=== PATIENT | male | born 2000 | race Caucasian/White ===

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

== ENCOUNTER → 2021-01-23 12:45 | Outpatient (BNVA) | payer MEDICAID, SELFPAY | PROVIDERS: Visit Provider Nurse Practitioner | DX: F33.1 Major depressive disorder, recurrent, moderate (principal); F10.21 Alcohol dependence, in remission; F15.21 Other stimulant dependence, in remission | CPT/HCPCS: 99214 ==

== ENCOUNTER 2021-02-17 10:06 | Emergency (ER) | payer MEDICAID, SELFPAY ==
[2021-02-17 10:24] VITALS: BP 132/74; PULSE 71; RESP 20; TEMP 36.4; O2SAT 98
--- NOTE | 2021-02-17 10:32 | W.ED.CHESTPA ---
HPI - Chest Pain General: Chief Complaint: Chest Pain Stated Complaint: Shortness of breath, chest pain Time Seen by Provider: 02/17/21 10:32 History of Present Illness: HPI narrative: Mr. Ochoa is a 20-year-old gentleman without significant past medical history presents to the emergency department due to abnormal feeling in his chest. Symptom onset was subacute yesterday. He does not recall specifically what he was doing at the time but it was not strenuous exertion. He describes intermittent pulsing sensations or a rash of chest pain in the left anterior chest. There is no significant radiation. He describes it as briefly taking his breath away however no associated other shortness of breath. He has not had frequent episodes of this in the past. The intensity when present is moderate. No other specific exacerbating, alleviating, or provoking factors. Review of Systems General: Reports: 10 or more systems reviewed and unremarkable except in HPI and below Narrative: CONSTITUTIONAL: denies fever, fatigue, weakness EYES - denies pain, denies loss of vision NOSE - denies congestion or rhinorrhea. THROAT - denies sore throat or difficulty swallowing. CARDIOVASCULAR -see HPI RESPIRATORY - denies shortness of breath and cough GASTROINTESTINAL - denies abdominal pain, no nausea vomiting, no changes in bowel habits GENITOURINARY - denies dysuria or urinary frequency MUSCULOSKELETAL- denies deformity or pain SKIN - denies rashes or new changed skin lesions NEUROLOGIC - denies focal weakness or sensory changes. No syncope. HEMATOLOGIC/LYMPHATIC - denies easy bruising or lymphadenopathy. [facility] ED PFSH: Medical History Alcohol dependence, in remission Major depressive disorder, recurrent, moderate Nicotine dependence, cigarettes, uncomplicated Other stimulant dependence, in remission Physical Exam Narrative: EXAM NARRATIVE: GENERAL/CONSTITUTIONAL - well-appearing. No acute distress. Patient is tall and thin, somewhat marfanoid body habitus. Eyes - PERRL, no conjunctival injection ENMT - Atraumatic external nose and ears. Moist mucous membranes NECK - supple. trachea midline CARDIOVASCULAR - regular rate and rhythm. Peripheral pulses 2+ and equal RESPIRATORY -clear to auscultation bilaterally. No retractions or accessory muscle use. ABDOMEN/GI - Nontender/Nondistended. No tenderness to percussion or evidence of peritonitis MSK - Extremities without obvious deformity or tenderness to palpation SKIN - Warm, Dry NEURO - alert and appropriately oriented. strength and sensation intact. Moves all extremities equally. PSYCH - Appropriate mood and affect Course ED course: - Patient was seen and evaluated by me at bedside - Patient placed on cardiac monitors, IV access obtained - Initial evaluation notable for no acute distress, nontoxic appearance - Labs notable for no acute abnormality to explain patient's symptoms - Imaging notable for no evidence of pneumothorax or other acute abnormality to explain patient's symptoms - Based on patient history, evaluation, labs, and imaging as interpreted the most likely cause of the patient's condition is unclear though overall patient is low risk for major adverse cardiac event. - The results of ED evaluation were discussed with the patient including prescriptions and/or symptomatic cares including appropriate and responsible use, followup plan, and return precautions. The patient verbalized understanding and felt safe for discharge. - Patient discharged in satisfactory condition. Vital Signs: Vital signs: Vital Signs Temperature 97.5 F L 02/17/21 13:57 Pulse Rate 74 02/17/21 13:57 Respiratory Rate 20 H 02/17/21 13:57 Blood Pressure 134/74 02/17/21 13:57 Pulse Oximetry 98 02/17/21 13:57 MDM - Chest Pain Medical Records: Attestation: I reviewed the patient's medical records. Lab Data: Attestation: I reviewed the patient's lab results. Labs: Lab Results 02/17/21 02/17/21 02/17/21 Range/Units 10:57 10:57 10:57 WBC 4.1 L (4.5-13.0) 10^3/ uL RBC 4.57 (4.1-5.3) 10^6/u L Hgb 14.0 (11.7-16.6) g/dL Hct 40.6 L (42.0-52.0) % MCV 88.8 (80-94) fl MCH 30.6 (28.0-34.0) pg MCHC 34.5 (30.0-36.0) g/dL RDW 11.3 L (12.1-15.1) % Plt Count 231 (130-400) 10^3/c mm MPV 9.5 (7.4-10.4) fL Neut % (Auto) 44.8 % Lymph % (Auto) 39.6 % [place] % (Auto) 9.8 % Eos % (Auto) 4.9 % Baso % (Auto) 0.7 % Neut # (Auto) 1.83 (1.8-8.0) 10^3/u L Lymph # (Auto) 1.6 (1.5-6.5) 10^3/u L [place] # (Auto) 0.4 (0.2-0.9) 10^3/u L Eos # (Auto) 0.2 (0.0-0.8) 10^3/u L Baso # (Auto) 0.0 (0.0-0.1) 10^3/u L Nucleated RBC % (a uto) 0 % Nucleated RBCs # 0.0 /100WBC D-Dimer (0-0.59) ug/mIFE U Sodium 140 (136-145) mmol/L Potassium 4.7 (3.5-5.1) mmol/L Chloride 105 (98-107) mmol/L Carbon Dioxide 28 (22-29) mmol/L Anion Gap 11.7 (5-19) BUN 10 (6-20) mg/dL Creatinine 0.5 L (0.7-1.2) mg/dL GFR Calculation 214.2 H (90-130) mL/min Glucose 76 (65-115) mg/dL Calculated Osmolal ity 288 (285-295) mOsm/k g Calcium 9.4 (8.5-10.5) mg/dL Total Bilirubin 0.6 (0.15-1.2) mg/dL AST 15 (0-40) U/L ALT 9 (0-41) U/L Alkaline Phosphata se 63 (40-130) IU/L Troponin T Baselin e 6 (0-15) ng/L NT-Pro-B Natriuret Pep 26 (0-125) pg/mL Total Protein 7.1 (6.6-8.7) g/dL Albumin 4.7 (3.5-5.2) g/dL Globulin 2.4 (1.3-4.6) g/dL Lipase 27 (13-60) U/L SARS-CoV-2 Ag (Rap id) (Negative) 02/17/21 02/17/21 Range/Units 11:19 11:33 WBC (4.5-13.0) 10^3/ uL RBC (4.1-5.3) 10^6/u L Hgb (11.7-16.6) g/dL Hct (42.0-52.0) % MCV (80-94) fl MCH (28.0-34.0) pg MCHC (30.0-36.0) g/dL RDW (12.1-15.1) % Plt Count (130-400) 10^3/c mm MPV (7.4-10.4) fL Neut % (Auto) % Lymph % (Auto) % [place] % (Auto) % Eos % (Auto) % Baso % (Auto) % Neut # (Auto) (1.8-8.0) 10^3/u L Lymph # (Auto) (1.5-6.5) 10^3/u L [place] # (Auto) (0.2-0.9) 10^3/u L Eos # (Auto) (0.0-0.8) 10^3/u L Baso # (Auto) (0.0-0.1) 10^3/u L Nucleated RBC % (a uto) % Nucleated RBCs # /100WBC D-Dimer <= 0.27 (0-0.59) ug/mIFE U Sodium (136-145) mmol/L Potassium (3.5-5.1) mmol/L Chloride (98-107) mmol/L Carbon Dioxide (22-29) mmol/L Anion Gap (5-19) BUN (6-20) mg/dL Creatinine (0.7-1.2) mg/dL GFR Calculation (90-130) mL/min Glucose (65-115) mg/dL Calculated Osmolal ity (285-295) mOsm/k g Calcium (8.5-10.5) mg/dL Total Bilirubin (0.15-1.2) mg/dL AST (0-40) U/L ALT (0-41) U/L Alkaline Phosphata se (40-130) IU/L Troponin T Baselin e (0-15) ng/L NT-Pro-B Natriuret Pep (0-125) pg/mL Total Protein (6.6-8.7) g/dL Albumin (3.5-5.2) g/dL Globulin (1.3-4.6) g/dL Lipase (13-60) U/L SARS-CoV-2 Ag (Rap id) Negative (Negative) EKG Data^: EKG 1: Attestation: I personally reviewed and interpreted this EKG as follows: EKG interpretation date: 06/19/21 EKG interpretation time: 10:25 Prior EKG tracings: available for review Interpretation: Twelve-lead EKG shows a regular sinus rhythm at a rate of 77. AK interval 143, QRS duration 97, QTc 368. Normal axis. Interpretation: Sinus rhythm Discharge Plan Discharge Patient Disposition: Home Clinical Impression: Chest pain Condition: Stable Prescriptions: No Action melatonin 5 mg Tablet 5 mg PO BEDTIME RF: 0 Seroquel 50 mg tablet 50 mg PO BEDTIME RF: 0 Discharge Orders: Discharge ED (Routine); Ordered 02/17/21 Ordered By: Adalberto Chanel Discharge Diet: Usual diet Discharge Activity: Resume usual activity Patient Instructions: Chest Pain (ED), Dyspnea (ED) Activity Restrictions/Additional Instructions: Thank you for visiting the emergency department. You were seen and evaluated for chest pain. The exact cause of your symptoms is unclear but does not appear to need hospitalization at this time. Please follow-up with a primary care provider. Please establish with a primary care provider if you do not currently have one. Please return to the emergency department for any reason that you are concerned about and feel needs emergency department evaluation. Coding Level of Care Code ED Sprinkler Fitter Apprentice for Pat Lopez
--- NOTE | 2021-02-17 10:46 | ECG_ITS ---
[facility] Test Date: 2021-02-17 Pat Name: Vinayak Ochoa Department: Room: Gender: Male Hand Stripper: : 2000 Requested By: Adalberto Chanel Order Number: [id number] Angus MD: Artem Joe M.D. Measurements Intervals [place] Rate: 77 P: 77 NV: 143 QRS: 95 QRSD: 97 T: 78 QT: 324 QTc: 368 Interpretive Statements SINUS RHYTHM POSSIBLE RIGHT ATRIAL ENLARGEMENT [0.25mV P WAVE] BORDERLINE RIGHT AXIS DEVIATION [QRS AXIS > 90] POSSIBLE RIGHT VENTRICULAR CONDUCTION DELAY [RSR (QR) IN V1/V2] Compared to ECG 03/20/2020 12:51:35 Sinus bradycardia no longer present Electronically Signed On 02-17-2021 19:31:27 CDT by Artem Joe M.D. [email or web address]
--- NOTE | 2021-02-17 10:46 | XR_ITS ---
WS: [id number] Portable AP upright chest, 02/17/2021 Clinical Data: chest pain Comparison: Portable chest, 03/20/2020. Findings: No nodules, masses or effusions are seen. The heart is normal. The pulmonary vascularity is not increased. No pneumonia or pneumothorax is seen. XR/XR chest 1V portable [id number] Impression: Negative chest.
[2021-02-17] MEDS: acetaminophen 325 mg Tablet 650 MG PO (10:56)
[2021-02-17 11:04] LABS: Basophils % 0.7 %; Eosinophils # 0.2 10^3/uL (0.0-0.8); Eosinophils % 4.9 %; Hematocrit 40.6 % (42.0-52.0); Lymphocytes # 1.6 10^3/uL (1.5-6.5); Lymphocytes % 39.6 %; Mean Corpuscular HGB Conc 34.5 g/dL (30.0-36.0); Mean Corpuscular Hemoglobin 30.6 pg (28.0-34.0); Mean Corpuscular Volume 88.8 fl (80-94); Mean Platelet Volume 9.5 fL (7.4-10.4); Monocytes # 0.4 10^3/uL (0.2-0.9); Monocytes % 9.8 %; Neutrophils # 1.83 10^3/uL (1.8-8.0); Neutrophils % 44.8 %; Nucleated Red Blood Cells % 0 %; Platelet Count 231 10^3/cmm (130-400); Red Blood Count 4.57 10^6/uL (4.1-5.3); Red Cell Distribution Width 11.3 % (12.1-15.1); White Blood Count 4.1 10^3/uL (4.5-13.0)
[2021-02-17 11:28] LABS: Troponin(5th) Baseline 6 ng/L (0-15)
[2021-02-17 11:36] LABS: Alanine Aminotransferase 9 U/L (0-41); Albumin Level 4.7 g/dL (3.5-5.2); Alkaline Phosphatase 63 IU/L (40-130); Aspartate Amino Transferase 15 U/L (0-40); Blood Urea Nitrogen 10 mg/dL (6-20); Calcium 9.4 mg/dL (8.5-10.5); Carbon Dioxide 28 mmol/L (22-29); Chloride 105 mmol/L (98-107); Globulin 2.4 g/dL (1.3-4.6); Glomerular Filtration Rate 214.2 mL/min (90-130); Glucose 76 mg/dL (65-115); Lipase 27 U/L (13-60); NT Pro B Type Natriuretic Pept 26 pg/mL (0-125); Osmolality Calculated 288 mOsm/kg (285-295); Sodium 140 mmol/L (136-145); Total Bilirubin 0.6 mg/dL (0.15-1.2); Total Protein 7.1 g/dL (6.6-8.7)
[2021-02-17 11:42] LABS: Anion Gap 11.7 (5-19); Potassium 4.7 mmol/L (3.5-5.1)
[2021-02-17 11:46] LABS: SARS Covid-2 Antigen Negative (Negative)
[2021-02-17 11:51] LABS: D Dimer <= 0.27 ug/mIFEU (0-0.59)
[2021-02-17 13:57] VITALS: BP 134/74; PULSE 74; RESP 20; TEMP 36.4; O2SAT 98
== END 2021-02-17 13:58 | disposition home or self-care (01) ==
PROVIDERS: Emergency Provider Emergency Medicine
DX: R07.9 Chest pain, unspecified (principal)
CPT/HCPCS: 71045; 80053; 83690; 83880; 84484; 85025; 85378; 87426; 93005; 99283

== ENCOUNTER → 2021-04-10 14:36 | Outpatient (BNVA) | payer MEDICAID, SELFPAY | PROVIDERS: Visit Provider Nurse Practitioner | DX: F33.1 Major depressive disorder, recurrent, moderate (principal); F10.21 Alcohol dependence, in remission; F15.21 Other stimulant dependence, in remission; F17.210 Nicotine dependence, cigarettes, uncomplicated | CPT/HCPCS: 99214 ==

== ENCOUNTER 2024-09-10 16:53 | Emergency (ER) | payer SELFPAY ==
[2024-09-10 16:56] VITALS: BP 109/69; PULSE 70; RESP 17; TEMP 36.5; O2SAT 96; BMI 15.3
--- NOTE | 2024-09-10 17:05 | W.ED.EXTPRO ---
HPI - Extremity Problem General: Chief complaint: Extremity Injury, Lower Stated complaint: right leg weakness Time Seen by Provider: 09/10/24 17:05 History of Present Illness: 24-year-old male patient comes in today for complaints of difficulty walking. Patient states that he has been told that he has arthritis in his hip and knees. Patient today was walking back from a job interview [place]. Patient reports occasionally has difficulty with falling. Related Data Home Medications ?Medication ?Instructions ?Recorded ?Confirmed No Known Home Medications 12/18/22 12/18/22 Allergies Allergy/AdvReac Type Severity Reaction Status Date / Time No Known Allergies Allergy Verified 12/18/22 17:17 Review of Systems General: Reports: 10 or more systems reviewed and unremarkable except in HPI and below PFSH ED PFSH: Medical History (Updated 09/10/24 @ 17:17 by MILLA Milan) Alcohol dependence, in remission Other stimulant dependence, in remission Major depressive disorder, recurrent, moderate Nicotine dependence, cigarettes, uncomplicated Physical Exam Const: COMMON NORMALS: alert HENMT: COMMON NORMALS: normocephalic HEAD & SCALP: normocephalic Neck/C-Spine: COMMON NORMALS: full ROM Resp: COMMON NORMALS: normal respiratory effort Back/Pelvis: COMMON NORMALS: thoracic and lumbar spine normal to inspection Extremity: COMMON NORMALS: normal to inspection Neuro: SENSORIUM/ORIENTATION: Yes alert Skin: COMMON NORMALS: turgor normal GENERAL SKIN EXAM: turgor normal Course Vital Signs: Vital signs: Vital Signs Temperature 97.7 F 09/10/24 16:56 Pulse Rate 70 09/10/24 16:56 Respiratory Rate 17 09/10/24 16:56 Blood Pressure 109/69 09/10/24 16:56 Pulse Oximetry 96 09/10/24 16:56 Oxygen Delivery Me thod Room Air 09/10/24 16:56 MDM - Extremity (Nontraumatic) Medical Decision Making 24-year-old male patient comes in today with difficulty walking. Patient states he has been told that he has arthritis. When questioned about his arthritis patient said it was due to poor nutrition growing up. Patient appears nontoxic. Patient appears no acute distress. Palpation of extremities note no elicitation of pain or discomfort no obvious deformity. Differential diagnosis includes malingering, osteoarthritis, nutritional deficiency, major depressive disorder. Patient does admit to poor eating due to no money to buy food. Patient often walks a lot. Patient appears nontoxic. Patient is ambulatory. No signs of severe illness or injury. Recommended following up with primary care for further treatment. No radiology studies performed this visit Discharge Plan Discharge Patient Disposition: Home Clinical Impression: Ambulatory dysfunction Arthritis of hip Qualifiers: Laterality: bilateral Qualified Code(s): M16.0 - Bilateral primary osteoarthritis of hip Condition: Stable Prescriptions: No Action No Known Home Medications Discharge Orders: Discharge ED (Routine); Ordered 09/10/24 Ordered By: Jerrod Burciaga Discharge Diet: Usual diet Discharge Activity: Increase activity as tolerated Patient Instructions: Hip Pain (ED) Activity Restrictions/Additional Instructions: Healthy diet and activity. Follow-up with primary care for further instructions. Return to ED for new concerns. Print Language: Cymro Coding Level of Care Code ED Loss Control Representative for Pat Lopez
[2024-09-10 17:25] VITALS: BP 111/65; PULSE 71; O2SAT 97
== END 2024-09-10 17:32 | disposition home or self-care (01) ==
PROVIDERS: Emergency Provider Nurse Practitioner Family
DX: R26.89 Other abnormalities of gait and mobility (principal); M16.0 Bilateral primary osteoarthritis of hip
CPT/HCPCS: 99281

== ENCOUNTER 2024-10-01 11:11 | Inpatient (IN) | payer SELFPAY ==
[2024-10-01 11:13] VITALS: BP 142/73; PULSE 49; RESP 15; TEMP 36.6; O2SAT 99; BMI 15.3
[2024-10-01 11:36] LABS: Basophils % 0.3 %; Eosinophils # 0.1 10^3/uL (0.0-0.8); Eosinophils % 0.8 %; Hematocrit 41.1 % (37-53); Lymphocytes # 1.6 10^3/uL (0.8-4.8); Lymphocytes % 26.3 %; Mean Corpuscular HGB Conc 32.8 g/dL (30-55); Mean Corpuscular Hemoglobin 30.3 pg (27-33); Mean Corpuscular Volume 92.4 fl (82-101); Mean Platelet Volume 8.9 fL (7.4-10.4); Monocytes # 0.4 10^3/uL (0.2-0.9); Monocytes % 6.9 %; Neutrophils # 4.02 10^3/uL (1.8-7.7); Neutrophils % 65.5 %; Nucleated Red Blood Cells % 0 %; Platelet Count 285 10^3/cmm (157-399); Red Blood Count 4.45 10^6/uL (3.85-5.65); Red Cell Distribution Width 13.7 % (12.1-15.1); White Blood Count 6.13 10^3/uL (3.29-11.43)
--- NOTE | 2024-10-01 11:42 | ED.C_ITS ---
HPI - Psych 2 General: Chief Complaint: Psychiatric Symptoms Stated Complaint: Si/HI Time Seen by Provider: 10/01/24 11:11 History of Present Illness: Patient presents by EMS from [facility]. Crisis center set up an affidavit. Patient has first visit there today to get established from the mental health perspective. Patient states he is suicidal and homicidal has been for the last several days. Patient said if someone gave him a plan he would act out on them. Seems like his aggression is more toward his mother and his living situations then other people. Patient does state he recently used mushrooms and alcohol. Related Data Home Medications ?Medication ?Instructions ?Recorded ?Confirmed No Known Home Medications 12/18/22 04/09/22 Allergies Allergy/AdvReac Type Severity Reaction Status Date / Time No Known Allergies Allergy Verified 12/18/22 17:17 Review of Systems 2 General: Reports: 10 or more systems reviewed and unremarkable except in HPI and below PFSH ED 2 PFSH: Medical History Alcohol dependence, in remission Other stimulant dependence, in remission Major depressive disorder, recurrent, moderate Nicotine dependence, cigarettes, uncomplicated Physical Exam 2 Const: COMMON NORMALS: no acute distress, average body habitus, patient oriented x3, no limitations, healthy appearing, alert and well nourished HENMT: COMMON NORMALS: normocephalic, atraumatic, hearing grossly normal bilaterally, external ears normal, Normal external nose present, moist oral mucous membranes and oropharynx normal HEAD & SCALP: normocephalic and atraumatic NOSE: Normal external nose present EXTERNAL EAR: Yes external ears normal Neck/C-Spine: COMMON NORMALS: no JVD Chest: COMMONS NORMALS: normal inspection of the chest and normal palpation of entire chest wall Resp: COMMON NORMALS: normal respiratory effort, No retractions, No use of accessory muscles and clear to auscultation bilaterally AUSCULTATION: clear to auscultation bilaterally Cardio: COMMON NORMALS: no JVD, regular rate, regular rhythm, S1 normal heart sound present, S2 normal heart sound present, No gallops present (Cardio), No clicks present (Cardio), No murmurs present (Cardio) and No rub (Cardio) R ATE: regular rate RHYTHM: regular rhythm HEART SOUNDS: S1 normal heart sound present and S2 normal heart sound present GI: COMMON NORMALS: Normal to inspection, nondistended, normoactive bowel sounds present, Soft to palpation, non-tender, No hepatosplenomegaly present and no masses PALPATION: Yes Soft to palpation and Yes No hepatosplenomegaly present Neuro: COMMON NORMALS: patient oriented x3 SENSORIUM/ORIENTATION: Yes alert Course 2 Vital Signs: Vital signs: Vital Signs Temperature 97.9 F 10/01/24 11:13 Pulse Rate 49 L 10/01/24 11:13 Respiratory Rate 15 10/01/24 11:13 Blood Pressure 142/73 10/01/24 11:13 Pulse Oximetry 99 10/01/24 11:13 Oxygen Delivery Me thod Room Air 10/01/24 11:13 MDM - Psych Medical Decision Making Patient was worked up in standard psychiatric fashion for medical clearance. Once medically cleared Dr. Jeffries was consulted who agreed to take the patient in [facility] for further evaluation treatment. Medical Records I reviewed the patient's medical records. Lab Data I reviewed the patient's lab results. 10/01/24 11:29 10/01/24 11:29 Laboratory Results WBC 6.13 10^3/uL (3.29-11.43) 10/01/24 11:29 RBC 4.45 10^6/uL (3.85-5.65) 10/01/24 11:29 Hgb 13.50 g/dL (11.27-16.99) 10/01/24 11:29 Hct 41.1 % (37-53) 10/01/24 11:29 MCV 92.4 fl (82-101) 10/01/24 11:29 MCH 30.3 pg (27-33) 10/01/24 11:29 MCHC 32.8 g/dL (30-55) 10/01/24 11:29 RDW 13.7 % (12.1-15.1) 10/01/24 11:29 Plt Count 285 10^3/cmm (157-399) 10/01/24 11:29 MPV 8.9 fL (7.4-10.4) 10/01/24 11:29 Neut % (Auto) 65.5 % 10/01/24 11:29 Lymph % (Auto) 26.3 % 10/01/24 11:29 [place] % (Auto) 6.9 % 10/01/24 11:29 Eos % (Auto) 0.8 % 10/01/24 11:29 Baso % (Auto) 0.3 % 10/01/24 11: Neut # (Auto) 4.02 10^3/uL (1.8-7.7) 10/01/24 11: Lymph # (Auto) 1.6 10^3/uL (0.8-4.8) 10/01/24 11: [place] # (Auto) 0.4 10^3/uL (0.2-0.9) 10/01/24 11: Eos # (Auto) 0.1 10^3/uL (0.0-0.8) 10/01/24 11:29 Baso # (Auto) 0.0 10^3/uL (0.0-0.1) 10/01/24 11: Nucleated RBC % (auto) 0 % 10/01/24 11: Nucleated RBCs # 0.0 /100WBC 10/01/24 11:29 Sodium 140 mmol/L (136-145) 10/01/24 11:29 Potassium 4.5 mmol/L (3.5-5.1) 10/01/24 11: Chloride 102 mmol/L (98-107) 10/01/24 11: Carbon Dioxide 29 mmol/L (22-29) 10/01/24 11:29 Anion Gap 13.5 (5-19) 10/01/24 11:29 BUN 9 mg/dL (6-20) 10/01/24 11:29 Creatinine 0.7 mg/dL (0.7-1.2) 10/01/24 11:29 GFR Calculation 139.8 mL/min (90-130) H 10/01/24 11:29 Glucose 91 mg/dL (65-115) 10/01/24 11: Calculated Osmolality 288 mOsm/kg (285-295) 10/01/24 11:29 Calcium 9.4 mg/dL (8.5-10.5) 10/01/24 11:29 Total Bilirubin 0.3 mg/dL (0.15-1.2) 10/01/24 11:29 AST 22 U/L (0-40) 10/01/24 11: ALT 14 U/L (0-41) 10/01/24 11:29 Alkaline Phosphatase 68 U/L (40-130) 10/01/24 11:29 Total Protein 7.9 g/dL (6.6-8.7) 10/01/24 11:29 Albumin 4.6 g/dL (3.5-5.2) 10/01/24 11:29 Globulin 3.3 g/dL (1.3-4.6) 10/01/24 11:29 Urine Color Yellow (Yellow) 10/01/24 12:26 Urine Appearance Clear (CLEAR) 10/01/24 12:26 Urine pH 7 (5-7) 10/01/24 12:26 Ur Specific [place] 1.005 (1.005-1.030) 10/01/24 12:26 Urine Protein Neg (Negative) 10/01/24 12:26 Urine Glucose (UA) Norm (Normal) 10/01/24 12:26 Urine Ketones Negative (Negative) 10/01/24 12:26 Urine Blood Neg (Negative) 10/01/24 12:26 Urine Nitrate Negative (Negative) 10/01/24 12:26 Urine Bilirubin Neg (Negative) 10/01/24 12:26 Urine Urobilinogen Norm mg/dL (Negative) 10/01/24 12:26 Ur Leukocyte Esterase Negative (Negative) 10/01/24 12:26 Amorphous Sediment Not Reportable 10/01/24 12:26 Salicylates < 0.3 mg/dL (3-10) L 10/01/24 11:29 Urine Opiates Screen Negative ng/mL (Negative) 10/01/24 12:26 Acetaminophen < 5.0 ug/mL (10-30) L 10/01/24 11:29 Ur Barbiturates Screen Negative ng/mL (Negative) 10/01/24 12:26 Ur Phencyclidine Scrn Negative ng/mL (Negative) 10/01/24 12:26 Ur Amphetamines Screen Negative ng/mL (Negative) 10/01/24 12:26 U Benzodiazepines Scrn Negative ng/mL (Negative) 10/01/24 12:26 Urine Cocaine Screen Negative ng/mL (Negative) 10/01/24 12:26 U Marijuana (THC) Screen Positive ng/mL (Negative) H 10/01/24 12:26 Ethyl Alcohol < 10 mg/dL (0-10) 10/01/24 11:29 All radiology interpretation(s) finalized by discharge Discharge Plan Discharge Patient Disposition: Admitted As Inpatient Clinical Impression: Suicidal ideation, Homicidal ideation Condition: Stable Coding Level of Care Code ED Energy And Conservation Technician for Pat Lopez
[2024-10-01 11:54] LABS: Alanine Aminotransferase 14 U/L (0-41); Albumin Level 4.6 g/dL (3.5-5.2); Alkaline Phosphatase 68 U/L (40-130); Anion Gap 13.5 (5-19); Aspartate Amino Transferase 22 U/L (0-40); Blood Urea Nitrogen 9 mg/dL (6-20); Calcium 9.4 mg/dL (8.5-10.5); Carbon Dioxide 29 mmol/L (22-29); Chloride 102 mmol/L (98-107); Creatinine Clr Calc Pharmacy 129.5171; Globulin 3.3 g/dL (1.3-4.6); Glomerular Filtration Rate 139.8 mL/min (90-130); Glucose 91 mg/dL (65-115); Osmolality Calculated 288 mOsm/kg (285-295); Potassium 4.5 mmol/L (3.5-5.1); Sodium 140 mmol/L (136-145); Total Bilirubin 0.3 mg/dL (0.15-1.2); Total Protein 7.9 g/dL (6.6-8.7)
[2024-10-01 11:55] LABS: Acetaminophen < 5.0 ug/mL (10-30); Alcohol Level < 10 mg/dL (0-10); Salicylate < 0.3 mg/dL (3-10)
[2024-10-01 12:41] LABS: Add Urine Microscopic? NO
[2024-10-01 12:47] LABS: Bilirubin Urine Neg (Negative); Blood Urine Neg (Negative); Glucose Urine UA Norm (Normal); Ketones Urine Negative (Negative); Leukocyte Esterase Urine Negative (Negative); Nitrate Urine Negative (Negative); Protein Urine Neg (Negative); Specific Gravity, Urine 1.005 (1.005-1.030); Urine Appearance Clear (CLEAR); Urine Color Yellow (Yellow); Urobilinogen Urine Norm (Negative); pH Urine 7 (5-7)
[2024-10-01 12:49] LABS: Charge for UA Resulting for Rev
[2024-10-01 12:56] LABS: Amphetamines Screen Urine Negative (Negative); Barbiturates Screen Urine Negative (Negative); Benzodiazepines Screen Urine Negative (Negative); Cocaine Screen Urine Negative (Negative); Opiate Screen Urine Negative (Negative); PCP Screen Urine Negative (Negative); THC Screen Urine Positive (Negative)
[2024-10-01 19:59] VITALS: BP 132/77; PULSE 60; RESP 17; TEMP 36.8; O2SAT 100
[2024-10-01 20:06] VITALS: BP 139/72; PULSE 57; O2SAT 98
[2024-10-01 20:38] VITALS: BP 132/77; PULSE 60; RESP 17; TEMP 36.8; O2SAT 100
[2024-10-01] MEDS: nicotine 4 mg lozenge MUCOUS MEM (21:28)
[2024-10-02 06:00] VITALS: BP 125/70; PULSE 60; RESP 16; TEMP 36.6; O2SAT 97
[2024-10-02] MEDS: nicotine 21 mg Patch 1 PATCH TRANSDERMA (07:22)
[2024-10-02] MEDS: hyDROXYzine 25 mg Capsule 50 MG PO (09:32)
[2024-10-02 14:00] VITALS: BP 130/75; PULSE 67; RESP 16; TEMP 36.7; O2SAT 99
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
[2024-10-02] MEDS: nicotine 4 mg lozenge MUCOUS MEM ×3 (17:52→22:16)
[2024-10-02 20:28] VITALS: BP 112/65; PULSE 78; RESP 18; TEMP 36.4; O2SAT 100
[2024-10-03 06:00] VITALS: BP 114/57; PULSE 65; RESP 18; TEMP 36.4; O2SAT 99
[2024-10-03] MEDS: nicotine 4 mg lozenge MUCOUS MEM ×6 (08:08→22:39)
[2024-10-03 14:00] VITALS: BP 108/65; PULSE 72; RESP 16; TEMP 37.1; O2SAT 100
--- NOTE | 2024-10-03 17:52 | P.NPUPN_ITS ---
Subjective NPU 2 Subjective: Patient presented today reporting that things are going fairly well. He endorsed the fact that he understands why he is here and does not want to get better. We continue to discuss whether medications are appropriate or whether he needed to have counseling and that would be sufficient. He reports he is trying to use the time here to get his mind ride and work on the things he needs to do differently to avoid this in the future. He continues to consider whether he is open to medication being restarted. Mental Status Exam 2 MSE Comments: This is a tall underweight versus cachectic white male in hospital scrubs with limited grooming and adequate eye contact. No abnormal movements except for mild psychomotor retardation. Cooperative with exam in mild distress. Speech was slightly decreased rate and volume with significant speech impediment significant difficulty with R's. Mood described as okay but not totally sure about being here, affect is congruent and slightly subdued. Thought process, linear. Thought content: patient denies suicidal or homicidal ideation, no delusions reported or noted, and denied auditory or visual hallucinations. Reports having thoughts of wanting to kill self during a recent conflict with mother. Has a history of thoughts of violence and blacking out, but currently managing these tendencies. Experiences anxiety, particularly triggered by interactions with mother. Not currently experiencing depression, but has a history of depression linked to anxiety and stress. Describes mood as pretty good today. Major stressors include conflict with mother and efforts to secure housing and employment. Mentions seeing little specs, but not related to paranoia. Attention and concentration are intact and memory appeared mostly reliable, but none were formally tested. He is alert and oriented x 3. Insight appeared fair, judgment was limited and impulse control was impaired. Vitals/I&O/Wt Last Vital Signs Temp 97.4 F L 10/03/24 21:21 Pulse 90 10/03/24 21:21 Resp 18 10/03/24 21:21 BP 135/62 10/03/24 21:21 Pulse Ox 98 10/03/24 21:21 O2 Del Method Room Air 10/03/24 21:21 Weight last 48 hrs Weight 60.498 kg Data NPU 10/01/24 11:29 10/01/24 11:29 A&P Assessment and plan (1) Major depressive disorder, recurrent, moderate: (2) Other stimulant dependence, in remission: (3) Alcohol dependence, in remission: (4) Suicidal ideation: (5) Homicidal ideation: (6) Cannabis use disorder: (7) Nicotine dependence, cigarettes, uncomplicated: Plan This is a 24 year old white male with a history of significant addiction and mental health history. He has a history of bipolar disorder diagnosed in childhood, with current challenges in managing anger and stress, particularly in relation to interactions with the patient's mother. There is a noted history of substance use, including tobacco, alcohol, and cannabis, with recent efforts to cease use and attend support groups. The patient has experienced episodes of violence and has expressed thoughts of self-harm and harm towards others, particularly during a recent altercation with their mother. There is no current evidence of psychosis or paranoia. The patient has a history of anxiety, which can exacerbate stress levels, but reports being in a generally good mood outside of specific stressors. 1. Consider medication 2. Encourage individual, group and milieu therapy 3. Continue q-15 minute check for safety 4. Recommend sober living treatment at the highest level of care to which the patient is willing to commit. 5. Evaluate against the backdrop of the 96-hour hold. 6. Obtain collateral information. PDMP PDMP Reviewed: Not Reviewed Involuntary Hold Information 2 Hold Status: Legal Status: 96 Hour Hold Date/Time Hold Expires: 10/07/24 @ 11:45 Attestations NPU 2 Medical Necessity Statement*: Inpatient hospitalization is medically necessary and the clinically appropriate intervention at this time. We will monitor medications and make changes as indicated. The patient's Likely length of stay is 2-4 days. Coding Level of Care Code Acute Code for [facility] Diagnoses Major depressive disorder, recurrent, moderate F33.1 Other stimulant dependence, in remission F15.21 Alcohol dependence, in remission F10.21 Suicidal ideation R45.851 Homicidal ideation R45.850 Cannabis use disorder F12.90 Nicotine dependence, cigarettes, uncomplicated F17.210
[2024-10-03 21:21] VITALS: BP 135/62; PULSE 90; RESP 18; TEMP 36.3; O2SAT 98
[2024-10-04] MEDS: nicotine 4 mg lozenge MUCOUS MEM ×6 (00:32→20:44)
[2024-10-04 06:00] VITALS: BP 142/71; PULSE 65; RESP 18; TEMP 36.5; O2SAT 96; BMI 16.9
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
[2024-10-04 14:00] VITALS: BP 117/68; PULSE 107; RESP 16; TEMP 36.7; O2SAT 98
[2024-10-04 19:39] VITALS: BP 117/65; PULSE 95; RESP 17; O2SAT 95
[2024-10-04] MEDS: trazodone 50 mg Tablet PO (21:10)
[2024-10-05 04:27] VITALS: BP 117/69; PULSE 80; RESP 16; TEMP 36.5; O2SAT 97
[2024-10-05] MEDS: nicotine 4 mg lozenge MUCOUS MEM ×3 (09:59→18:25)
[2024-10-05 14:00] VITALS: BP 117/79; PULSE 65; RESP 16; TEMP 37.1; O2SAT 97
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
[2024-10-05 20:11] VITALS: BP 118/72; PULSE 74; RESP 17; TEMP 36.6; O2SAT 99
[2024-10-05] MEDS: trazodone 50 mg Tablet PO (20:13)
[2024-10-06 04:22] VITALS: BP 137/84; PULSE 95; RESP 18; TEMP 36.4; O2SAT 95
[2024-10-06] MEDS: nicotine 4 mg lozenge MUCOUS MEM ×4 (09:18→19:37)
[2024-10-06 14:00] VITALS: BP 134/76; PULSE 65; RESP 16; O2SAT 100
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
[2024-10-06 20:06] VITALS: BP 119/68; PULSE 74; RESP 18; TEMP 36.4; O2SAT 100
[2024-10-06] MEDS: hyDROXYzine 25 mg Capsule 50 MG PO (21:32)
[2024-10-07 06:00] VITALS: BP 129/56; PULSE 63; RESP 18; TEMP 36.5; O2SAT 99
[2024-10-07] MEDS: nicotine 4 mg lozenge MUCOUS MEM ×4 (06:38→16:36)
[2024-10-07] MEDS: hyDROXYzine 25 mg Capsule 50 MG PO (10:15)
--- NOTE | 2024-10-07 10:16 | PC.NURSE ---
Patient c/o anxiety at level of 7/10, states that his normal is around 5/10. He requested PRN Vistaril. Pulled and administered 2 tablets of Vistaril as ordered and patient took both without issue. He requested his cell phone to get a phone number from it, which Kaela Cannon CNA pulled from belongings and allowed patient to obtain phone number under 1:1 surveillance and assisted in helping patient write it down. He denies further issues or concerns at this time.
[2024-10-07 14:00] VITALS: BP 133/89; PULSE 73; RESP 17; TEMP 37.1; O2SAT 96
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
[2024-10-07 20:07] VITALS: BP 110/64; PULSE 65; RESP 16; TEMP 36.7; O2SAT 95
[2024-10-08] MEDS: trazodone 50 mg Tablet PO (00:52)
[2024-10-08] MEDS: nicotine 4 mg lozenge MUCOUS MEM ×2 (00:54→08:16)
[2024-10-08 06:00] VITALS: BP 120/66; PULSE 82; RESP 20; TEMP 36.6; O2SAT 96
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
[2024-10-08 13:06] VITALS: BP 121/65; PULSE 82; RESP 16; TEMP 36.8; O2SAT 99
[2024-10-08 13:22] VITALS: BP 121/65; PULSE 86; RESP 16; TEMP 36.8; O2SAT 99
--- NOTE | 2024-10-08 15:07 | PC.NURSE ---
upon discharge pt vape was not in his belongings. The vape is documented on his belongings list verified by staff with 2 signatures. this management and budget analyst, Medical Assistant Cardiology and RN both searched through belongings in the storage room butblue vape was not found. notified RUPALI Guerrero.
== END 2024-10-08 15:00 | disposition home or self-care (01) | DRG 885 ==
LOC: ER 16:20 → NP 16:54
PROVIDERS: Admitting Provider Psychiatry & Neurology Psychiatry; Emergency Provider Emergency Medicine; Visit Provider Psychiatry & Neurology Psychiatry
DX: F33.1 Major depressive disorder, recurrent, moderate (principal); R45.851 Suicidal ideations; Z68.1 Body mass index [BMI] 19.9 or less, adult; R64 Cachexia; R45.850 Homicidal ideations; F10.21 Alcohol dependence, in remission; F15.21 Other stimulant dependence, in remission; F90.2 Attention-deficit hyperactivity disorder, combined type; F12.90 Cannabis use, unspecified, uncomplicated; F17.210 Nicotine dependence, cigarettes, uncomplicated; Z63.8 Other specified problems related to primary support group; Z62.820 Parent-biological child conflict; Z81.1 Family history of alcohol abuse and dependence
CPT/HCPCS: 36415; 80053; 80306; 80307; 81003; 85025; 97150; 97165; 99285; J9999

== ENCOUNTER → 2024-12-09 10:20 | Outpatient (BNVA) | payer OTHER, SELFPAY | PROVIDERS: Visit Provider Psychiatry & Neurology Psychiatry | DX: F31.9 Bipolar disorder, unspecified (principal); F10.21 Alcohol dependence, in remission | CPT/HCPCS: 80061; 83036 ==

== ENCOUNTER 2025-01-10 13:36 | Emergency (ER) | payer BC, MEDICAID, SELFPAY ==
[2024-12-15 13:03] VITALS: BP 135/68; BMI 17.8
--- NOTE | 2025-01-10 13:39 | ECG_ITS ---
[facility] Test Date: 2025-01-10 Pat Name: Vinayak Ochoa Department: Room: Gender: Male Rn House Supervisor: : 2000 Requested By: Kimberly Tavares Order Number: [id number] Angus MD: Artem Joe M.D. Measurements Intervals Shelby Rate: 59 P: 73 VT: 149 QRS: 97 QRSD: 104 T: 66 QT: 370 QTc: 367 Interpretive Statements SINUS BRADYCARDIA POSSIBLE RIGHT ATRIAL ENLARGEMENT [0.25mV P-WAVE] POSSIBLE LEFT ATRIAL ENLARGEMENT [-0.1mV P-WAVE IN V1/V2] BORDERLINE RIGHT AXIS DEVIATION [QRS AXIS > 90] POSSIBLE RIGHT VENTRICULAR CONDUCTION DELAY [RSR (QR) IN V1/V2] Compared to ECG 02/17/2021 10:22:13 Sinus rhythm no longer present Electronically Signed On 01-12-2025 10:01:17 CDT by Artem Joe M.D. [email or web address]
[2025-01-10 13:47] VITALS: BP 114/70; PULSE 62; TEMP 36.7; O2SAT 99; BMI 17.4
[2025-01-10 14:34] LABS: Hematocrit 39.1 % (37-53); Hemoglobin 13.40 g/dL (11.27-16.99); Mean Corpuscular HGB Conc 34.3 g/dL (30-55); Mean Corpuscular Hemoglobin 30.2 pg (27-33); Mean Corpuscular Volume 88.1 fl (82-101); Nucleated Red Blood Cells % 0 %; Platelet Count 305 10^3/cmm (157-399); Red Blood Count 4.44 10^6/uL (3.85-5.65); White Blood Count 5.24 10^3/uL (3.29-11.43)
[2025-01-10 14:56] LABS: Alanine Aminotransferase 10 U/L (0-41); Albumin Level 4.2 g/dL (3.5-5.2); Alkaline Phosphatase 54 U/L (40-130); Anion Gap 14.6 (5-19); Aspartate Amino Transferase 14 U/L (0-40); Blood Urea Nitrogen 7 mg/dL (6-20); Calcium 9.3 mg/dL (8.5-10.5); Carbon Dioxide 28 mmol/L (22-29); Chloride 102 mmol/L (98-107); Creatinine Clr Calc Pharmacy 171.9873; Globulin 3.0 g/dL (1.3-4.6); Glucose 100 mg/dL (65-115); Osmolality Calculated 288 mOsm/kg (285-295); Potassium 4.6 mmol/L (3.5-5.1); Sodium 140 mmol/L (136-145); Total Protein 7.2 g/dL (6.6-8.7)
[2025-01-10 14:59] LABS: Alcohol Level < 10 mg/dL (0-10)
--- NOTE | 2025-01-10 16:32 | XRR_ITS ---
PROCEDURE INFORMATION: Exam: XR Chest Exam date and time: 01/10/2025 4:44 PM Age: 24 years old Clinical indication: Injury or trauma; Fall; Blunt trauma (contusions or hematomas) TECHNIQUE: Imaging protocol: Radiologic exam of the chest. Views: 1 view. COMPARISON: CR XR chest 1V portable [id number] 02/17/2021 10:44 AM FINDINGS: Lungs: Unremarkable. No consolidation. Pleural spaces: Unremarkable. No pleural effusion. No pneumothorax. Heart/Mediastinum: Unremarkable. No cardiomegaly. Bones/joints: Unremarkable. XR/XR chest 1V portable [id number] IMPRESSION: No acute findings.
--- NOTE | 2025-01-10 16:32 | CTR_ITS ---
PROCEDURE INFORMATION: Exam: CT Head Without Contrast Exam date and time: 01/10/2025 4:40 PM Age: 24 years old Clinical indication: Altered mental status/memory loss; Confusion or disorientation; Additional info: Seizure TECHNIQUE: Imaging protocol: Computed tomography of the head without contrast. Radiation optimization: All CT scans at this facility use at least one of these dose optimization techniques: automated exposure control; mA and/or kV adjustment per patient size (includes targeted exams where dose is matched to clinical indication); or iterative reconstruction. COMPARISON: CT head wo con* [id number] 03/20/2020 12:21 PM RADIATION DOSE METRICS: Total DLP (mGy-cm): 1053.68 FINDINGS: Brain: Normal. No hemorrhage. Unremarkable white matter. No mass effect. Cerebral ventricles: No ventriculomegaly. Paranasal sinuses: Visualized sinuses are unremarkable. No fluid levels. Mastoid air cells: Visualized mastoid air cells are well aerated. Bones: Unremarkable. No acute fracture. Soft tissues: Unremarkable. CT/CT head wo con* [id number] IMPRESSION: No acute intracranial abnormality.
--- NOTE | 2025-01-10 16:33 | ED_ITS ---
HPI - General Adult 2 General: Chief complaint: General Medical Stated complaint: light headed, diizy, confusion, weakness Time Seen by Provider: 01/10/25 16:29 Source: patient Mode of arrival: ambulatory Limitations: no limitations History of Present Illness: 24-year-old male states that he did smok e some marijuana last night also needed Advil he states he thinks he had a seizure he did fall he said he has been having little headache some chest pain. He states today he is felt kind of confused and out of it. He has a mild headache today denies any vomiting or diarrhea ambulatory here. Associated symptoms: Reports headache(s); Deny chest pain, nausea, rash or vomiting Related Data Previous Rx's ?Medication ?Instructions ?Recorded cetirizine 10 mg tablet (Zyrtec) 10 mg PO DAILY PRN al lergy 10/16/24 symptoms #30 tabs fluticasone propionate 50 2 spray intranasal BID PRN n amina 10/16/24 mcg/actuation nasal congestion #16 grams spray,suspension (Flonase Allergy Relief) ibuprofen 600 mg tablet 600 mg PO TID PRN pain #30 t abs 10/16/24 promethazine-DM 6.25 mg-15 mg/5 mL 10 ml PO Q6H PRN co ugh #118 mL 10/16/24 oral syrup Allergies Allergy/AdvReac Type Severity Reaction Status Date / Time No Known Allergies Allergy Verified 10/16/24 12:39 Review of Systems 2 Const: Denies: fever(s), chills, body aches or change in appetite Eyes: Denies: blurry vision or eye discomfort ENMT: Denies: throat pain or dental pain Card: Denies: chest pain GI: Denies: abdominal pain, nausea, vomiting or diarrhea Musc: Denies: neck pain or back pain Skin/Breast: Denies: rash Neuro: Reports: headache(s) PFSH ED 2 PFSH: Medical History Psychiatric care Alcohol dependence, in remission Other stimulant dependence, in remission Major depressive disorder, recurrent, moderate Nicotine dependence, cigarettes, uncomplicated Social History Smoking and tobacco/nicotine status: never used tobacco/nicotine Physical Exam 2 Const: COMMON NORMALS: no acute distress, patient oriented x3 and healthy appearing HENMT: COMMON NORMALS: normocephalic and atraumatic HEAD & SCALP: n ormocephalic and atraumatic Eye: COMMON NORMALS: Equal, round and reactive pupils present and EOMs intact bilaterally PUPIL: Yes Equal, round and reactive pupils present Neck/C-Spine: COMMON NORMALS: full ROM and supple Chest: COMMONS NORMALS: normal inspection of the chest and normal palpation of entire chest wall Resp: COMMON NORMALS: normal respiratory effort, No retractions, No use of accessory muscles and clear to auscultation bilaterally AUSCULTATION: clear to auscultation bilaterally Cardio: COMMON NORMALS: regular rate, regular rhythm and No murmurs present (Cardio) RATE: regular rate RHYTHM: regular rhythm Extremity: COMMON NORMALS: normal to inspection and full ROM Neuro: COMMON NORMALS: patient oriented x3, moves all extremities and no focal motor deficits Psych: COMMON NORMALS: mental status grossly normal, Normal thought process present and cooperative THOUGHT PROCESS: Normal thought process present Skin: COMMON NORMALS: no rashes or lesions noted and no wounds GENERAL SKIN EXAM: no rashes or lesions noted Course 2 Vital Signs: Vital signs: Vital Signs Temperature 98.0 F 01/10/25 13:47 Pulse Rate 62 01/10/25 13:47 Blood Pressure 114/70 01/10/25 13:47 Pulse Oximetry 99 01/10/25 13:47 Oxygen Delivery Me thod Room Air 01/10/25 13:47 [facility] - General Adult Medical Decision Making Patient presents with dizziness possible seizure last night he is well-appearing here blood work imaging is normal could have been from his marijuana use last night as well he is well-appearing here stable for discharge. Medical Records I reviewed the patient's medical records. Lab Data I reviewed the patient's lab results. 01/10/25 14:06 01/10/25 14:06 Radiology Impressions Chest X-Ray 01/10/25 16:32 IMPRESSION: No acute findings. Head CT 01/10/25 16:32 IMPRESSION: No acute intracranial abnormality. Laboratory Results WBC 5.24 10^3/uL (3.29-11.43) 01/10/25 14:06 RBC 4.44 10^6/uL (3.85-5.65) 01/10/25 14:06 Hgb 13.40 g/dL (11.27-16.99) 01/10/25 14:06 Hct 39.1 % (37-53) 01/10/25 14:06 MCV 88.1 fl (82-101) 01/10/25 14:06 MCH 30.2 pg (27-33) 01/10/25 14:06 MCHC 34.3 g/dL (30-55) 01/10/25 14:06 RDW 11.4 % (12.1-15.1) L 01/10/25 14:06 Plt Count 305 10^3/cmm (157-399) 01/10/25 14:06 MPV 9.0 fL (7.4-10.4) 01/10/25 14:06 Neut % (Auto) 66.8 % 01/10/25 14:06 Lymph % (Auto) 24.2 % 01/10/25 14:06 Perkins % (Auto) 7.8 % 01/10/25 14:06 Eos % (Auto) 0.6 % 01/10/25 14:06 Baso % (Auto) 0.4 % 01/10/25 14:06 Neut # (Auto) 3.50 10^3/uL (1.8-7.7) 01/10/25 14:06 Lymph # (Auto) 1.3 10^3/uL (0.8-4.8) 01/10/25 14:06 Perkins # (Auto) 0.4 10^3/uL (0.2-0.9) 01/10/25 14:06 Eos # (Auto) 0.0 10^3/uL (0.0-0.8) 01/10/25 14:06 Baso # (Auto) 0.0 10^3/uL (0.0-0.1) 01/10/25 14:06 Nucleated RBC % (auto) 0 % 01/10/25 14:06 Nucleated RBCs # 0.0 /100WBC 01/10/25 14:06 Sodium 140 mmol/L (136-145) 01/10/25 14:06 Potassium 4.6 mmol/L (3.5-5.1) 01/10/25 14:06 Chloride 102 mmol/L (98-107) 01/10/25 14:06 Carbon Dioxide 28 mmol/L (22-29) 01/10/25 14:06 Anion Gap 14.6 (5-19) 01/10/25 14:06 BUN 7 mg/dL (6-20) 01/10/25 14:06 Creatinine 0.6 mg/dL (0.7-1.2) L 01/10/25 14:06 GFR Calculation 167.0 mL/min (90-130) H 01/10/25 14:06 Glucose 100 mg/dL (65-115) 01/10/25 14:06 Calculated Osmolality 288 mOsm/kg (285-295) 01/10/25 14:06 Calcium 9.3 mg/dL (8.5-10.5) 01/10/25 14:06 Total Bilirubin 0.3 mg/dL (0.15-1.2) 01/10/25 14:06 AST 14 U/L (0-40) 01/10/25 14:06 ALT 10 U/L (0-41) 01/10/25 14:06 Alkaline Phosphatase 54 U/L (40-130) 01/10/25 14:06 Total Protein 7.2 g/dL (6.6-8.7) 01/10/25 14:06 Albumin 4.2 g/dL (3.5-5.2) 01/10/25 14:06 Globulin 3.0 g/dL (1.3-4.6) 01/10/25 14:06 Ethyl Alcohol < 10 mg/dL (0-10) 01/10/25 14:06 All radiology interpretation(s) finalized by discharge Discharge Plan Discharge Patient Disposition: Home Clinical Impression: Dizziness Condition: Stable Prescriptions: No Action promethazine-DM 6.25-15 mg/5 mL syrup 10 ml PO Q6H PRN (Reason: cough) Qty: 118 0RF ibuprofen 600 mg tablet 600 mg PO TID PRN (Reason: pain) Qty: 30 0RF fluticasone propionate [Flonase Allergy Relief] 50 mcg/actuation spray,suspension 2 spray intranasal BID PRN (Reason: nasal congestion) Qty: 16 0RF Rx Instructions: administer into each nostril cetirizine [Zyrtec] 10 mg tablet 10 mg PO DAILY PRN (Reason: allergy symptoms) Qty: 30 0RF Discharge Orders: Discharge ED (Routine); Ordered 01/10/25 Ordered By: Kimberly Tavares Discharge Diet: Advance as tolerated Discharge Activity: Resume usual activity Patient Instructions: Dizziness (ED) Stand Alone Forms: Work/School Release Print Language: Mohawk Coding Level of Care Code ED 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
[2025-01-10 17:31] VITALS: BP 126/65; PULSE 80; RESP 16; O2SAT 100
[2025-01-10 17:53] VITALS: BP 102/53; PULSE 90; O2SAT 99
== END 2025-01-10 17:54 | disposition home or self-care (01) ==
PROVIDERS: Emergency Provider Emergency Medicine
DX: R42 Dizziness and giddiness (principal)
CPT/HCPCS: 36415; 70450; 71045; 80053; 80307; 85025; 93005; 99285

== ENCOUNTER 2025-05-10 13:43 | Outpatient (CLI) | payer BC, MEDICAID, SELFPAY ==
[2024-12-15 13:03] VITALS: BP 135/68; BMI 17.8
--- NOTE | 2025-05-10 13:48 | XR_ITS ---
WS: [id number] Exam: XR chest 2V* [id number] Date/Time of Exam: 05/10/2025 1:48 PM Reason For Exam: chest pain Comparison 01/10/2025. The lungs are clear and fully inflated. Normal cardiomediastinal silhouette. Bony structures appear normal. XR/XR chest 2V* [id number] IMPRESSION: 1. Normal chest.
== END 2025-05-10 13:44 | disposition home or self-care (01) ==
LOC: RAD 13:45
PROVIDERS: Visit Provider Emergency Medicine
DX: R07.9 Chest pain, unspecified (principal)
CPT/HCPCS: 71046

== ENCOUNTER 2025-06-15 18:51 | Inpatient (IN) | payer BC, MEDICAID, SELFPAY ==
[2024-12-15 13:03] VITALS: BP 135/68; BMI 17.8
[2025-06-15 18:54] VITALS: BP 121/72; PULSE 81; RESP 14; TEMP 36.6; O2SAT 100; BMI 18.1
[2025-06-15 19:30] LABS: Hematocrit 41.2 % (37-53); Hemoglobin 14.00 g/dL (11.27-16.99); Mean Corpuscular HGB Conc 34.0 g/dL (30-55); Mean Corpuscular Hemoglobin 29.9 pg (27-33); Mean Corpuscular Volume 88.0 fl (82-101); Nucleated Red Blood Cells % 0 %; Platelet Count 270 10^3/cmm (157-399); Red Blood Count 4.68 10^6/uL (3.85-5.65); White Blood Count 6.65 10^3/uL (3.29-11.43)
[2025-06-15 19:49] LABS: Alanine Aminotransferase 12 U/L (0-41); Albumin Level 4.6 g/dL (3.5-5.2); Alkaline Phosphatase 57 U/L (40-130); Aspartate Amino Transferase 17 U/L (0-40); Blood Urea Nitrogen 11 mg/dL (6-20); Calcium 9.2 mg/dL (8.5-10.5); Carbon Dioxide 29 mmol/L (22-29); Chloride 100 mmol/L (98-107); Creatinine Clr Calc Pharmacy 151.3777; Globulin 2.7 g/dL (1.3-4.6); Glucose 95 mg/dL (65-115); Osmolality Calculated 285 mOsm/kg (285-295); Sodium 138 mmol/L (136-145); Total Protein 7.3 g/dL (6.6-8.7)
[2025-06-15 19:54] LABS: PCP Screen Urine Negative (Negative)
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
[2025-06-15 20:07] LABS: Acetaminophen < 5.0 ug/mL (10-30); Alcohol Level < 10 mg/dL (0-10); Anion Gap 13.3 (5-19); Potassium 4.3 mmol/L (3.5-5.1); Salicylate < 0.3 mg/dL (3-10)
[2025-06-15 22:03] VITALS: BP 113/69; PULSE 52; O2SAT 97
[2025-06-15 22:42] VITALS: BP 121/69; PULSE 52; RESP 16; TEMP 36.6; O2SAT 98
--- NOTE | 2025-06-15 23:50 | PC.NURSE ---
No skin issues visible. Small tattoo on upper back. Pt was calm and cooperative.
[2025-06-16 06:00] VITALS: BP 108/65; PULSE 65; RESP 16; TEMP 36.9; O2SAT 98
--- NOTE | 2025-06-16 06:03 | PC.ADMIT ---
605 [facility] Admission Note: The patient,Vinayak Ochoa,25 y/o, was given written information regarding hospital policies, unit procedures and contact persons. Patient's smoking status: current every day smoker. Vital Signs - 8 hr 06/15/25 22:42 Temperature 97.9 F Pulse Rate 52 L Respiratory Rate 16 Blood Pressure 121/69 Pulse Oximetry 98 Oxygen Delivery Method Room Air No skin issues visible. Small tattoo on upper back. Pt was calm and cooperative.
[2025-06-16 14:00] VITALS: BP 108/59; PULSE 60; RESP 18; TEMP 36.9; O2SAT 93
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
[2025-06-16] MEDS: divalproex ER 500 mg Tablet (24H) PO (17:02)
[2025-06-16 20:33] VITALS: BP 127/77; PULSE 63; RESP 18; TEMP 36.3; O2SAT 97
[2025-06-17 05:09] VITALS: BP 142/71; PULSE 55; RESP 16; TEMP 36.6; O2SAT 96
[2025-06-17] MEDS: divalproex ER 500 mg Tablet (24H) PO (08:07)
[2025-06-17 14:00] VITALS: BP 124/68; PULSE 66; RESP 17; TEMP 37; O2SAT 98
--- NOTE | 2025-06-17 15:42 | W.PM.NPUPNS ---
Subjective NPU Subjective: 25-year-old male admitted with suicidal ideation with reports of poor impulse control and adhd along with borderline personality traits. The patient had reported a longstanding difficulty with managing his moods. He reports that when he felt extremely anxious he would often explode and start feeling excessively negative about himself to the point that he would impulsively attempt to harm himself. Previous attempts to harm himself had included attempting to choke himself, and previous attempts to hang himself. He had reported a history of poor frustration tolerance. He reported no side effects from his Depakote at this time. He had reported being sensitive to criticism and reported chronic long-term difficulties with sustaining attention. He reports poor frustration tolerance and reported frequent problems with being unable to manage boredom. He had reported having been on an IEP for much of his life for a yet to be determined learning disorder. He had reported limited history of treatment for ADHD. Mental Status Exam MSE Comments: This is a tall underweight white male in hospital scrubs with limited grooming and adequate eye contact. No abnormal involuntary motor movements except for mild psychomotor retardation. He was cooperative with exam in mild distress. Speech was normal in rate and volume with significant speech impediment significant difficulty with R's. Mood described as okay. His affect is congruent and slightly subdued. Thought process, linear, logical and goal directed. Thought content: patient denies suicidal or homicidal ideation, no delusions reported or noted, and denied auditory or visual hallucinations. He reports no active suicidal ideation or homicidal ideation. Has a history of thoughts of violence and blacking out and reports struggling to manage these tendencies. Attention span is poor. He is alert and oriented x 3. Insight appeared poor. His judgment was limited and impulse control was impaired. Vitals/I&O/Wt Last Vital Signs Temp 98.6 F 06/17/25 14:00 Pulse 66 06/17/25 14:00 Resp 17 06/17/25 14:00 BP 124/68 06/17/25 14:00 Pulse Ox 98 06/17/25 14:00 O2 Del Method Room Air 06/17/25 05:09 Weight last 48 hrs Weight 65.771 kg Data NPU 06/15/25 19:24 06/15/25 19:24 A&P Assessment and plan 1. Mood disorder due to known physiological condition, unspecified: 2. Borderline personality disorder: 3. ADHD (attention deficit hyperactivity disorder), combined type: 4. Chronic post-traumatic stress disorder (PTSD): 5. Suicidal ideation: 6. Other stimulant dependence, in remission: 7. Alcohol dependence, in remission: 8. Homicidal ideation: 9. Cannabis use disorder: 10. Nicotine dependence, cigarettes, uncomplicated: Plan: This is a 25 year old white male with a history of mood instability often triggered by anxiety leading to dangerous impulsive behavior with strong borderline personality traits. 1. Increase Depakote to 750mg in am. Add Ritalin 10mg bid (8,12) 2. Encourage individual, group and milieu therapy 3. Continue q-15 minute check for safety 4. Recommend sober living treatment at the highest level of care to which the patient is willing to commit. 5. Evaluate against the backdrop of the 96-hour hold. 6. Obtain collateral information. PDMP PDMP Reviewed: Not Reviewed Attestations NPU Medical Necessity Statement*: Inpatient hospitalization is medically necessary and the clinically appropriate intervention at this time. We will monitor medications and make changes as indicated. The patient's likely length of stay is 5-7 days. Coding Level of Care Code Acute Code for [facility] Fwd Diagnoses Mood disorder due to known physiological condition, unspecified F06.30 Borderline personality disorder F60.3 ADHD (attention deficit hyperactivity disorder), combined type F90.2 Chronic post-traumatic stress disorder (PTSD) F43.12 Suicidal ideation R45.851 Other stimulant dependence, in remission F15.21 Alcohol dependence, in remission F10.21 Homicidal ideation R45.850 Cannabis use disorder F12.90 Nicotine dependence, cigarettes, uncomplicated F17.210
[2025-06-17 20:23] VITALS: BP 138/84; PULSE 65; RESP 16; TEMP 36.6; O2SAT 98
[2025-06-18 06:00] VITALS: BP 113/69; PULSE 60; RESP 16; TEMP 36.7; O2SAT 98
[2025-06-18] MEDS: divalproex ER 250 mg Tablet (24H) 750 MG PO (08:19)
[2025-06-18 14:00] VITALS: BP 121/78; PULSE 72; RESP 16; TEMP 37.2; O2SAT 97
--- NOTE | 2025-06-18 15:19 | P.NPUPN_ITS ---
Subjective NPU 2 Subjective: 25-year-old male admitted with suicidal ideation with reports of poor impulse control and adhd along with borderline personality traits. Patient reported no side effects from the Ritalin today. He had reported no increase in anxiety. He had reported improved ability to focus. He had reported that he felt less impulsive and reported that his moods had been feeling better with the increase in Depakote. He reported a slight tremor on the Depakote. He had been redirectable on the milieu. He had reported that he was not having thoughts of harming himself. He was agreeable to considering psychiatric help including psychotherapy to manage his chronic problems with affective instability. Mental Status Exam 2 MSE Comments: This is a tall underweight white male in hospital scrubs with limited grooming and adequate eye contact. No abnormal involuntary motor movements except for mild psychomotor retardation. He was cooperative with exam in mild distress. Speech was normal in rate and volume with significant speech impediment significant difficulty with R's. Mood described as a little better. His affect is congruent and slightly subdued. Thought process, linear, logical and goal directed. Thought content: patient denies suicidal or homicidal ideation, no delusions reported or noted, and denied auditory or visual hallucinations. He reports no active suicidal ideation or homicidal ideation. Has a history of thoughts of violence and blacking out and reports struggling to manage these tendencies. Attention span is poor. He is alert and oriented x 3. Insight appeared poor. His judgment was limited and impulse control was poor. Vitals/I&O/Wt Last Vital Signs Temp 98.0 F 06/18/25 06:00 Pulse 60 06/18/25 06:00 Resp 16 06/18/25 06:00 BP 113/69 06/18/25 06:00 Pulse Ox 98 06/18/25 06:00 O2 Del Method Room Air 06/18/25 06:00 Data NPU 06/15/25 19:24 06/15/25 19:24 A&P Assessment and plan 1. Mood disorder due to known physiological condition, unspecified: 2. Borderline personality disorder: 3. ADHD (attention deficit hyperactivity disorder), combined type: 4. Chronic post-traumatic stress disorder (PTSD): 5. Suicidal ideation: 6. Other stimulant dependence, in remission: 7. Alcohol dependence, in remission: 8. Homicidal ideation: 9. Cannabis use disorder: 10. Nicotine dependence, cigarettes, uncomplicated: Plan: This is a 25 year old white male with a history of mood instability often triggered by anxiety leading to dangerous impulsive behavior with strong borderline personality traits. 1. Continue Depakote to 750mg in am. Increase ritalin to 10mg tid. 2. Encourage individual, group and milieu therapy 3. Continue q-15 minute check for safety 4. Recommend sober living treatment at the highest level of care to which the patient is willing to commit. 5. Evaluate against the backdrop of the 96-hour hold. 6. Obtain collateral information. PDMP PDMP Reviewed: Not Reviewed Attestations NPU 2 Medical Necessity Statement*: Inpatient hospitalization is medically necessary and the clinically appropriate intervention at this time. We will monitor medications and make changes as indicated. The patient's likely length of stay is 3-5 days. Coding Level of Care Code Acute Code for [facility] Fwd Diagnoses Mood disorder due to known physiological condition, unspecified F06.30 Borderline personality disorder F60.3 ADHD (attention deficit hyperactivity disorder), combined type F90.2 Chronic post-traumatic stress disorder (PTSD) F43.12 Suicidal ideation R45.851 Other stimulant dependence, in remission F15.21 Alcohol dependence, in remission F10.21 Homicidal ideation R45.850 Cannabis use disorder F12.90 Nicotine dependence, cigarettes, uncomplicated F17.210
--- NOTE | 2025-06-18 18:15 | PC.NURSE ---
Patient has been calm and cooperative with care this shift. He did have some anxiety mid morning and requested a PRN for this. Patient given written and verbal education over Ritalin. All questions were answered. Patient has denied SI/HI/AVH.
[2025-06-18 20:07] VITALS: BP 133/83; PULSE 82; RESP 18; TEMP 36.9; O2SAT 98
[2025-06-19 05:17] VITALS: BP 128/77; PULSE 54; RESP 16; TEMP 36.4; O2SAT 96
[2025-06-19] MEDS: divalproex ER 250 mg Tablet (24H) 750 MG PO (08:02)
--- NOTE | 2025-06-19 11:49 | P.NPUPN_ITS ---
Subjective NPU 2 Subjective: 25-year-old male admitted with suicidal ideation with reports of poor impulse control and adhd along with borderline personality traits. Patient reported improved focus on Ritalin. He reports that he was able to read and stated that he felt less anxious while taking the medication but stated that when the medicine appeared to be wearing off he did appear to be less focused and more fidgety. He had reported that Depakote had been better at stabilizing his moods. He reported no side effects from the medications otherwise. He reported no insomnia. He had been pleasant and compliant on the milieu. He had reported having no suicidal thoughts or thoughts of harming himself here. Mental Status Exam 2 MSE Comments: This is a tall underweight white male in hospital scrubs with fair grooming and good eye contact laying on his bed and reading the bible. No abnormal involuntary motor movements except for mild psychomotor retardation. He was cooperative with exam in mild distress. Speech was normal in rate and volume with significant speech impediment significant difficulty with R's. Mood described as good. His affect is mood congruent and brighter. Thought process was linear, logical and goal directed. Thought content: patient denies suicidal or homicidal ideation, no delusions reported or noted, and denied auditory or visual hallucinations. He reports no active suicidal ideation or homicidal ideation. Attention span is improved.. He is alert and oriented x 3. Insight was improving. His judgment was limited and impulse control was improving. Vitals/I&O/Wt Last Vital Signs Temp 97.5 F L 06/19/25 05:17 Pulse 54 L 06/19/25 05:17 Resp 16 06/19/25 05:17 BP 128/77 06/19/25 05:17 Pulse Ox 96 06/19/25 05:17 O2 Del Method Room Air 06/19/25 05:17 Data NPU 06/15/25 19:24 06/15/25 19:24 A&P Assessment and plan 1. Mood disorder due to known physiological condition, unspecified: 2. Borderline personality disorder: 3. ADHD (attention deficit hyperactivity disorder), combined type: 4. Chronic post-traumatic stress disorder (PTSD): 5. Suicidal ideation: 6. Other stimulant dependence, in remission: 7. Alcohol dependence, in remission: 8. Homicidal ideation: 9. Cannabis use disorder: 10. Nicotine dependence, cigarettes, uncomplicated: Plan: This is a 25 year old white male with a history of mood instability often triggered by anxiety leading to dangerous impulsive behavior with strong borderline personality traits. 1. Continue Depakote to 750mg in am. Continue ritalin at 10mg tid. 2. Encourage individual, group and milieu therapy 3. Continue q-15 minute check for safety 4. Recommend sober living treatment at the highest level of care to which the patient is willing to commit. 5. Evaluate against the backdrop of the 96-hour hold. 6. Obtain trough AM depakote level, cbc with diff, LFT's on 06/21/25. PDMP PDMP Reviewed: Not Reviewed Attestations NPU 2 Medical Necessity Statement*: Inpatient hospitalization is medically necessary and the clinically appropriate intervention at this time. We will monitor medications and make changes as indicated. The patient's likely length of stay is 3-5 days. Coding Level of Care Code Acute Code for [facility] Fwd Diagnoses Mood disorder due to known physiological condition, unspecified F06.30 Borderline personality disorder F60.3 ADHD (attention deficit hyperactivity disorder), combined type F90.2 Chronic post-traumatic stress disorder (PTSD) F43.12 Suicidal ideation R45.851 Other stimulant dependence, in remission F15.21 Alcohol dependence, in remission F10.21 Homicidal ideation R45.850 Cannabis use disorder F12.90 Nicotine dependence, cigarettes, uncomplicated F17.210
[2025-06-19 13:46] VITALS: BP 132/84; PULSE 86; RESP 18; TEMP 36.6; O2SAT 95
[2025-06-19 19:42] VITALS: BMI 16.3
[2025-06-19 21:02] VITALS: BP 127/87; PULSE 88; RESP 17; TEMP 36.8; O2SAT 95
[2025-06-20 06:00] VITALS: RESP 16
--- NOTE | 2025-06-20 06:30 | PC.NURSE ---
vitals not done per order, pt asleep, nurse aware, resp 16
[2025-06-20] MEDS: divalproex ER 250 mg Tablet (24H) 750 MG PO (07:39)
[2025-06-20 14:00] VITALS: BP 131/61; PULSE 84; RESP 18; TEMP 36.8; O2SAT 97
--- NOTE | 2025-06-20 14:02 | P.NPUPN_ITS ---
Subjective NPU 2 Subjective: 25-year-old male admitted with suicidal ideation with reports of poor impulse control and adhd along with borderline personality traits. The patient continued to show improvement in regards to his focus with the increase in Ritalin. He reported no side effects from his medication. He reports that the Depakote has not given him any side effects. He had reported having a reduction in anxiety. He was quiet and cooperative on the milieu and reported improved ability to stay on task. He reported no suicidal thoughts. Mental Status Exam 2 MSE Comments: This is a tall thin white male in hospital scrubs with fair grooming and good eye contact laying on his bed and reading the bible. No abnormal involuntary motor movements except for mild psychomotor retardation. He was cooperative with exam in mild distress. Speech was normal in rate and volume with significant speech impediment significant difficulty with R's. Mood described as good. His affect is mood congruent and brighter. Thought process was linear, logical and goal directed. Thought content: patient denies suicidal or homicidal ideation, no delusions reported or noted, and denied auditory or visual hallucinations. He reports no active suicidal ideation or homicidal ideation. Attention span is improved.. He is alert and oriented x 3. Insight was improving. His judgment was limited and impulse control was improving. Vitals/I&O/Wt Last Vital Signs Temp 98.2 F 06/19/25 21:02 Pulse 88 06/19/25 21:02 Resp 16 06/20/25 06:00 BP 127/87 06/19/25 21:02 Pulse Ox 95 06/19/25 21:02 O2 Del Method Room Air 06/19/25 21:02 Weight last 48 hrs Weight 59.421 kg Data NPU 06/15/25 19:24 06/15/25 19:24 A&P Assessment and plan 1. Mood disorder due to known physiological condition, unspecified: 2. Borderline personality disorder: 3. ADHD (attention deficit hyperactivity disorder), combined type: 4. Chronic post-traumatic stress disorder (PTSD): 5. Suicidal ideation: 6. Other stimulant dependence, in remission: 7. Alcohol dependence, in remission: 8. Homicidal ideation: 9. Cannabis use disorder: 10. Nicotine dependence, cigarettes, uncomplicated: Plan: This is a 25 year old white male with a history of mood instability often triggered by anxiety leading to dangerous impulsive behavior with strong borderline personality traits. 1. Continue Depakote to 750mg in am. Continue ritalin at 10mg tid. 2. Encourage individual, group and milieu therapy 3. Continue q-15 minute check for safety 4. Recommend sober living treatment at the highest level of care to which the patient is willing to commit. 5. Evaluate against the backdrop of the 96-hour hold. 6. Obtain trough AM depakote level, cbc with diff, LFT's on 06/21/25. PDMP PDMP Reviewed: Not Reviewed Involuntary Hold Information 2 Hold Status: Date/Time Hold Expires: voluntary Attestations NPU 2 Medical Necessity Statement*: Inpatient hospitalization is medically necessary and the clinically appropriate intervention at this time. We will monitor medications and make changes as indicated. The patient's likely length of stay is 2-3 days. Coding Level of Care Code Acute Code for [facility] Fwd Diagnoses Mood disorder due to known physiological condition, unspecified F06.30 Borderline personality disorder F60.3 ADHD (attention deficit hyperactivity disorder), combined type F90.2 Chronic post-traumatic stress disorder (PTSD) F43.12 Suicidal ideation R45.851 Other stimulant dependence, in remission F15.21 Alcohol dependence, in remission F10.21 Homicidal ideation R45.850 Cannabis use disorder F12.90 Nicotine dependence, cigarettes, uncomplicated F17.210
[2025-06-20 21:47] VITALS: BP 123/72; PULSE 70; RESP 17; TEMP 36.6; O2SAT 97
[2025-06-21 06:00] VITALS: RESP 17
--- NOTE | 2025-06-21 06:35 | PC.NURSE ---
vs not completed pt sleeping soundly, resp 17 nurse notified
[2025-06-21 07:37] LABS: Hematocrit 40.7 % (37-53); Hemoglobin 14.00 g/dL (11.27-16.99); Mean Corpuscular HGB Conc 34.4 g/dL (30-55); Mean Corpuscular Hemoglobin 30.0 pg (27-33); Mean Corpuscular Volume 87.2 fl (82-101); Nucleated Red Blood Cells % 0 %; Platelet Count 243 10^3/cmm (157-399); Red Blood Count 4.67 10^6/uL (3.85-5.65); White Blood Count 4.81 10^3/uL (3.29-11.43)
[2025-06-21 07:49] LABS: Alanine Aminotransferase 15 U/L (0-41); Albumin Level 4.6 g/dL (3.5-5.2); Alkaline Phosphatase 51 U/L (40-130); Aspartate Amino Transferase 19 U/L (0-40); Globulin 2.2 g/dL (1.3-4.6); Total Protein 6.8 g/dL (6.6-8.7)
[2025-06-21] MEDS: divalproex ER 250 mg Tablet (24H) 750 MG PO (08:04)
--- NOTE | 2025-06-21 11:40 | W.PM.NPUDCS ---
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
[2025-06-21 11:48] VITALS: BP 123/72; PULSE 70; RESP 17; TEMP 36.6; O2SAT 97
== END 2025-06-21 12:30 | disposition home or self-care (01) | DRG 751 ==
LOC: ER 20:16 → NP 22:36
PROVIDERS: Admitting Provider Psychiatry & Neurology Psychiatry; Emergency Provider Physician Assistant; Visit Provider Psychiatry & Neurology Psychiatry
DX: F33.1 Major depressive disorder, recurrent, moderate (principal); F60.3 Borderline personality disorder; F43.12 Post-traumatic stress disorder, chronic; R45.851 Suicidal ideations; F15.21 Other stimulant dependence, in remission; F10.21 Alcohol dependence, in remission; R45.850 Homicidal ideations; F17.210 Nicotine dependence, cigarettes, uncomplicated; R63.6 Underweight; Z68.1 Body mass index [BMI] 19.9 or less, adult; Z81.8 Family history of other mental and behavioral disorders; F90.2 Attention-deficit hyperactivity disorder, combined type
CPT/HCPCS: 36415; 80053; 80076; 80164; 80306; 80307; 85025; 97150; 97165; 99285; J9999